=== PATIENT | male | born 1965 | race Caucasian/White ===

== ENCOUNTER 2020-06-07 04:37 | Inpatient (IN) | payer BC ==
[~2020-06-07] VITALS: Ht 167.6 cm; Wt 90.3 kg
[2020-06-07] VITALS (7 sets, daily range): BP systolic 110–210; BP diastolic 74–140
[~2020-06-07 04:37] MED LIST: COREG25 MG PO; HYDROCHLOROTHIA25 M2 PO; K-DUR 20 MEQ T20 MEQ PO; LASIX 20 MG TAB20 MG PO; LIPITOR40 MG PO; OMEPRAZOLE40 MG PO; OSCIMIN SR0.375 MG PO; PRINIVIL10 MG PO
[2020-06-07 05:13] LABS: BE -17.1 mmol/L (-2 to +3); PO2 89.2 mmHg (75.0-100.0)
[2020-06-07 05:15] LABS: PCO2 50.3 mmHg (35.0-45.0); pH 7.052 (7.340-7.450)
[2020-06-07 05:34] LABS: ABSOLUTE BASOPHILS 0.1 thou/uL (0.0-0.2); ABSOLUTE EOSINOPHILS 0.2 thou/uL (0.0-0.7); ABSOLUTE LYMPHOCYTES 6.7 thou/uL (0.8-5.3); ABSOLUTE MONOCYTES 0.6 thou/uL (0.0-1.2); ABSOLUTE NEUTROPHILS 5.3 thou/uL (1.6-8.1); BASOPHILS 0.5 %; EOSINOPHILS 1.9 %; HEMATOCRIT 54.9 % (42.0-52.0); HEMOGLOBIN 17.7 gm/dL (14.0-18.0); MCH 33.2 pg (26.0-34.0); MCHC 32.2 g/dL (28.0-37.0); MCV 102.9 fL (80.0-100.0); MONOCYTES 4.6 %; NUCLEATED RBCS 0 /100WBC; PLATELET COUNT* 223 thou/uL (150-400); RBC 5.34 mil/uL (4.50-6.00); RDW-CV 14.2 % (10.5-14.5); WBC 12.8 thou/uL (4.0-11.0)
[2020-06-07 05:35] LABS: CALCIUM 9.4 mg/dL (8.5-10.1); CREATININE 1.7 mg/dL (0.6-1.3); POTASSIUM 4.2 mmol/L (3.5-5.1)
[2020-06-07 05:38] LABS: PROTIME 10.9 Seconds (9.20-11.50)
[2020-06-07 05:45] LABS: ALBUMIN 3.3 g/dL (3.4-5.0); MAGNESIUM 2.3 mg/dL (1.8-2.4); TOTAL BILIRUBIN 0.6 mg/dL (<0.1-1.0); TOTAL PROTEIN 7.1 g/dL (6.4-8.2)
--- NOTE | 2020-06-07 05:55 | NUR ---
A FEW MOMENTS PRIOR TO TRANSPORT TO [facility], PT'S WORK OF BREATHING DECREASED, PT REPORTED PAIN HAD RESOLVED, AND PT BECAME LESS DIAPHORETIC, AND MADE A CALL TO HIS FAMILY. BIPAP REMOVED, AND PLACED ON O2 @ 4LPM [place] PRIOR TO TRANSPORT. PT APPEARED TO BE MUCH MORE RELAXED AND IN NO ACUTE DISTRESS AT TIME OF TRANSFER. VITALS NOTED, SEE STEMI FLOWSHEET. CARE RELINQUISHED TO [facility] STAFF.
[2020-06-07 06:24] LABS: BE -9.7 mmol/L (-2 to +3); PCO2 33.6 mmHg (35.0-45.0)
[2020-06-07 06:27] LABS: PO2 277.6 mmHg (75.0-100.0); pH 7.287 (7.340-7.450)
[2020-06-07] MEDS ORDERED: PROAIR HFA8.5 GM INH (08:05)
--- NOTE | 2020-06-07 11:17 | CARD ---
[address] [address] CARDIAC CATH REPORT Name: DARSHAN MURILLO Room: 001 ADM IN M.R.#: [id number] Admission: 06/07/20 Attend Phys: Humberto Carr MD Discharge: Date of : 61 Report #: [id number] THIS REPORT FOR: cc: FAM - No family physician/PCP FAM - No family physician/PCP ~ Ruiz Villalobos MD [facility] APPROVED REPORT Study performed: 06/07/2020 05:19:26 Patient Details Patient Status: ED Room #: The patient is a 54 year-old male Event Personnel Ruiz Villalobos And Drying Supervisor Cooking Casing, Corrina Dowell RN RN, Ke Us RETAIL PHARMACIST Scrub, Elvia Jaramillo RTR Monitor Procedures Performed Art Access - R radial artery Left Heart Cath w/or w/o Coronaries ISAI Place w/wo Plasty Single LAD Hemostasis with Hemoband Indication Abnormal ECG, Dyspnea, Chest pain Risk Factors Arterial Hypertension, Hypercholesterolemia, Tobacco History () Admission/Lab Medications/Medications given during procedure Glycoprotein IllbIlla Inhibitors, Heparin Unfract., 0.9% Sodium Chloride IV 75 ml per hr, Lidocaine Subcut 10 ml, Nitroglycerin IA 200 mcg, Verapamil IA 2.5 mg, Heparin IV 2500 units, Bicarb IV 50 mEq, Lasix (Furosemide) IV 40 ml, Heparin IV 2000 units, Aggrastat IV 9 ml, Effient PO 60 mg Procedure Narrative The patient was brought emergently to the Cardiac Catheterization Laboratory and was prepped and draped in a sterile manner. The right wrist was infiltrated with 2% Lidocaine subcutaneous anesthesia. A Slender Glidesheath sheath was inserted into the right radial artery. Coronary angiography was performed [place] [address] CARDIAC CATH REPORT Name: CHIDIDARSHANPETRA XIONG Room: [address] IN [facility]#: [id number] Admission: 06/07/20 Attend Phys: Humberto Carr MD Discharge: Date of : 61 Report #: [id number] catheters. The right coronary system was accessed and visualized with a Diagnostic 6 Fr JR 4 catheter. The left coronary system was accessed and visualized with a Diagnostic 6 Fr JL 4 catheter. The left ventricle was accessed and visualized with a Diagnostic 6 Fr Pigtail catheter. Left ventricular/Aortic Valve gradient assessed via catheter pullback. Left ventriculogram was performed in BENAVIDES projection. Closure device was deployed with a 6 Fr Reg Vasc Band. The patient tolerated the procedure well and there were no complications associated with the procedure. There was no hematoma. Intraoperative Conscious Sedation No sedation was given. Case start was 06:07 and case end was 06:47. Fluoro Time: 8.4 minutes Dose: DAP 224069 cGycm2 1764 mGy Contrast Type and Amount: Visipaque 365 ml Coronary Angiography The patient's coronary anatomy is co- dominant. Diagnostic Cath Left Main 0% stenosis LAD 80% mid stenosis Circumflex 30% mid stenosis OM1 40% proximal stenosis Right Coronary 40% proximal and 40% mid stenosis Left Ventriculography The left ventricular ejection fraction is estimated to be 30-35%. There is no mitral insufficiency. global left ventricle hypokinesis noted Hemodynamics The aortic pressure is 117/75 mmHg with a mean of 93 mmHg. The left ventricular pressure is 117/11 mmHg with a mean of mmHg. The left ventricular end diastolic pressure is 25 mmHg. There was no gradient across the aortic valve upon pullback. Pullback from the left ventricle to the aorta revealed no gradient across the aortic valve. PCI Technique Lesion Anticoagulation was achieved with Heparin. bolus of IV aggrastat given Percutaneous coronary [place] [address] CARDIAC CATH REPORT Name: DARSHAN MURILLO Room: [address] IN [facility]#: [id number] Admission: 06/07/20 Attend Phys: Humberto Carr MD Discharge: Date of : 61 Report #: [id number] left anterior descending artery segment. The lesion stenosis prior to intervention was 80% with ROSENDO 3 flow. A 6F XB LAD 3.5 Guide Catheter was used to engage the left ostium. A IG: BMW 190cm Interventional Guidewire was used to cross the lesion. BALLOON DILATION A Balloon catheter Trek RX 2.5 X 12 was inserted and inflated up to 14.00atm for 19seconds. Repeat angiography revealed the following post-dilatation results: 40% stenosis. Additional Inflation: 14.00atm for 10seconds. STENT DEPLOYMENT A drug-eluting stent [place] RX Stent [id number] was inserted and inflated up to 8.00atm for 11seconds. Repeat angiography revealed the following post-stent deployment results: 0% stenosis. Additional Inflation: 10.00atm for 7seconds. Additional Inflation: 10.00atm for 10seconds. Final angiography reveals 0 % stenosis with ROSENDO 3 flow. Conclusion 1. 80% stenosis noted in the mid LAD 2. LVEF 30-35% 3. successful placement of a drug eluting stent in the mid LAD Recommendations Smoking Cessation Medications Administered Prasugrel <ELECTRONICALLY SIGNED> By: Ruiz Villalobos MD, [facility] 06/07/20 1117 111 [id number] Villalobos MD, [facility] /INF
--- NOTE | 2020-06-07 12:54 | EKG ---
[place] [address] ELECTROCARDIOGRAM REPORT Name: DARSHAN MURILLO Room: [address] ADM IN .R.#: [id number] Admission: 06/07/20 Attend Phys: Humberto Carr, Discharge: Date of : 61 Date of Service: 06/07/20 0511 Report #: [id number] THIS REPORT FOR: //name// [facility] ED Test Date: 2020-06-07 Test Time: 05:11:13 Pat Name: DARSHAN MURILLO Department: Room: [facility] Gender: M Pilot Boat Deckhand: : 1965 Requested By: Ruiz Villalobos Order Number: [id number] Octavia MD: Saul Hernandez Measurements Intervals [place] Rate: 111 P: 39 [place]: 138 QRS: 11 QRSD: 140 T: 185 QT: 389 QTc: 529 Interpretive Statements Sinus tachycardia Left bundle branch block Compared to ECG 09/08/2015 16:47:16 Left bundle-branch block now present Sinus rhythm no longer present Electronically Signed On 06-07-2020 12:54:37 STAVE CUTTING SUPERVISOR by Saul Hernandez [email or web address] <ELECTRONICALLY SIGNED> By: Saul Hernandez MD, FACC 06/07/20 1254 0511 0511 Saul Hernandez MD, [facility] /EPI
--- NOTE | 2020-06-07 12:54 | EKG ---
[place] [address] ELECTROCARDIOGRAM REPORT Name: DARSHAN MURILLO Room: [address] ADM IN .R.#: [id number] Admission: 06/07/20 Attend Phys: Humberto Carr, Discharge: Date of : 61 Date of Service: 06/07/20 0446 Report #: [id number] THIS REPORT FOR: //name// [facility] ED Test Date: 2020-06-07 Test Time: 04:46:48 Pat Name: DARSHAN MURILLO Department: Room: [facility] Gender: M Parasitologist: LIS : 1965 Requested By: Maren Harmon Order Number: [id number] Octavia MD: Saul Hernandez Measurements Intervals [place] Rate: 133 P: 268 [place]: 105 QRS: 29 QRSD: 136 T: 218 QT: 322 QTc: 479 Interpretive Statements Sinus or ectopic atrial tachycardia Left bundle branch block Compared to ECG 09/08/2015 16:47:16 Left bundle-branch block now present Sinus rhythm no longer present Electronically Signed On 06-07-2020 12:54:31 FAT PURIFICATION WORKER by Saul Hernandez [email or web address] <ELECTRONICALLY SIGNED> By: Saul Hernandez MD, FACC 06/07/20 1254 0446 0446 Saul Hernandez MD, FACC /EPI
--- NOTE | 2020-06-07 12:55 | EKG ---
[place] [address] ELECTROCARDIOGRAM REPORT Name: DARSHAN MURILLO Room: [address] ADM IN M.R.#: [id number] Admission: 06/07/20 Attend Phys: Humberto Carr, Discharge: Date of : 61 Date of Service: 06/07/20 0805 Report #: [id number] THIS REPORT FOR: //name// [facility] Test Date: 2020-06-07 Test Time: 08:05:00 Pat Name: DARSHAN MURILLO Department: Room: [facility] Gender: M Coffin Maker: AMEE : 1965 Requested By: Maren Harmon Order Number: [id number] MD: Saul Hernandez Measurements Intervals [place] Rate: 99 P: 47 [place]: 154 QRS: 15 QRSD: 93 T: 104 QT: 364 QTc: 468 Interpretive Statements Sinus rhythm Probable left atrial enlargement T wave inversion anterior leads consider ischemia Compared to ECG 09/08/2015 16:47:16 Myocardial infarct finding now present Electronically Signed On 06-07-2020 12:55:11 CLAIM SPECIALIST by Saul Hernandez [email or web address] <ELECTRONICALLY SIGNED> By: Saul Hernandez MD, FACC 06/07/20 1255 0805 Saul Hernandez MD, [facility] /EPI
[2020-06-07 14:03] LABS: BE 0.9 mmol/L (-2 to +3); PO2 VENOUS 49.8 mmHg (35.0-45.0)
[2020-06-07 15:44] LABS: ALBUMIN 3.4 g/dL (3.4-5.0); DIRECT BILIRUBIN 0.2 mg/dL (<0.1-0.3); TOTAL BILIRUBIN 0.6 mg/dL (<0.1-1.0); TOTAL PROTEIN 6.9 g/dL (6.4-8.2)
--- NOTE | 2020-06-07 16:35 | CON ---
[address] [address] CONSULTATION Name: DARSHAN MURILLO Room: [address] IN M.R.#: [id number] Admission: 06/07/20 Attend Phys: Humberto Carr MD Discharge: Date of : 61 Report #: [id number] THIS REPORT FOR: cc: FAM - No family physician/PCP FAM - No family physician/PCP ~ Ruiz Villalobos MD [facility] DATE OF SERVICE: 06/07/2020 HISTORY OF PRESENT ILLNESS: The patient is a 54-year-old white male who I was asked to see in the Emergency Room today after he complained of shortness of breath. The history is obtained from the patient. There are no old records here at [facility]. The patient is not very active at this time. Unfortunately, he smokes a pack of cigarettes a day and has a chronic cough. He uses inhalers. He apparently did have a heart catheterization at [facility] back in 2007 that showed no significant coronary artery disease. He denies a history of chest pain, palpitations, syncope. Recently, he has been more short of breath. He does have chronic cough. He awakened at 4:00 this morning and was acutely short of breath. He called the ambulance. He was given 4 nitroglycerins. ECG showed evidence of ST segment elevation. Code STEMI was activated. I was asked to see him on an urgent basis. He was given nebulizer treatment and put on BiPAP. His shortness of breath is now improved. PAST MEDICAL HISTORY: Otherwise, he has had: 1. Previous cholecystectomy. 2. Hypertension. 3. Hyperlipidemia. 4. COPD. MEDICATIONS: Include: 1. Lisinopril. 2. Carvedilol. 3. Lipitor. 4. Omeprazole. 5. Hydrochlorothiazide. ALLERGIES: He has an allergy to SULFA DRUGS. FAMILY HISTORY: Positive for heart disease. SOCIAL HISTORY: He has a male partner. He lives in [place]. 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 He smokes a pack of cigarettes a day. Has 3-4 drinks of alcohol a day. REVIEW OF SYSTEMS: No history of stroke. He does have sleep apnea, [place] [address] CONSULTATION Name: SARAHDIEGODARSHANPETRA XIONG Room: [address]#: [id number] Admission: 06/07/20 Attend Phys: Humberto Carr MD Discharge: Date of : 61 Report #: [id number] He has a chronic cough. No oxygen at home. No liver disease. No bleeding. No kidney disease. No cancer. No psychiatric illness. PHYSICAL EXAMINATION: GENERAL: Reveals a middle-aged male, who appears in moderate respiratory distress. VITAL SIGNS: His blood pressure is 120/70. His pulse is 90. HEENT: He is anicteric. Conjunctivae are pink. Mucous membranes moist. NECK: Veins nondistended. No carotid bruits. CHEST: Revealed expiratory sounds. No significant wheezes. ABDOMEN: Soft. EXTREMITIES: Had no edema. Dorsalis pedis pulse 2+ bilaterally. SKIN: Cool and dry. NEUROLOGIC: Nonfocal. RADIOLOGICAL DATA: His ECG on admission showed sinus tachycardia. There appeared to be a rate dependent bundle-branch block. The bundle-branch block is new from a previous ECG in 2016. His workup, he had a portable chest x-ray that showed mild cardiomegaly, mild pulmonary edema. LABORATORY WORK: Sodium 140, potassium 4.2, creatinine 1.7. His glucose is 304. His troponin is 0.04. White blood cell count 12.8, hemoglobin 17.7. COVID antigen study is pending. ABG; pH 7.0, pCO2 of 50, pO2 of 89. IMPRESSION AND RECOMMENDATIONS: 1. Rate dependent bundle-branch block. Recommend urgent cardiac catheterization. 2. Chronic obstructive pulmonary disease. The patient is on BiPAP. 3. Pulmonary edema. Recommend Lasix. 4. Tobacco abuse. 5. Hypertension. The patient is on an LIZABETH inhibitor, beta [place]orge [place] [address] CONSULTATION Name: DARSHAN MURILLO Room: [address] IN ..#: [id number] Admission: 06/07/20 Attend Phys: Humberto Carr MD Discharge: Date of : 61 Report #: [id number] 6. Hyperlipidemia. The patient is on a statin drug. 7. Excessive alcohol intake. <ELECTRONICALLY SIGNED> By: Ruiz Villalobos MD, FACC 06/07/20 1635 0554 [id number] Villalobos MD, FACC /nt
--- NOTE | 2020-06-07 16:35 | CON ---
[address] [address] CONSULTATION Name: DARSHAN MURILLO Room: [address] IN M.R.#: [id number] Admission: 06/07/20 Attend Phys: Humberto Carr MD Discharge: Date of : 61 Report #: [id number] THIS REPORT FOR: cc: FAM - No family physician/PCP FAM - No family physician/PCP ~ Ruiz Villalobos MD [facility] DATE OF SERVICE: 06/07/2020 CARDIOLOGY CONSULTATION HISTORY OF PRESENT ILLNESS: The patient is a 54-year-old white male who I was asked to see in the Emergency Room today after he complained of being short of breath. The patient denies a previous history of heart disease. He apparently has been tested for COVID recently and was negative. He has noticed shortness of breath and cough, but he has had no fever. He awakened at 4:00 a.m. today with acute shortness of breath. He did note some chest tightness. Denied palpitations, syncope, bleeding. He called the ambulance and was brought here to [place] on an emergent basis. His ECG was noted to have a new left bundle branch block. I was asked to see him for further evaluation and treatment. PAST MEDICAL HISTORY: He has had previous surgery on his neck. He has a history of hypertension, hyperlipidemia. No diabetes. CURRENT MEDICATIONS: Include lisinopril, carvedilol, Lipitor. ALLERGIES: HE HAS AN ALLERGY TO SULFA DRUGS. FAMILY HISTORY: Positive for heart disease. SOCIAL HISTORY: He has a male partner. He lives in [place]. 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 Smokes a pack of cigarettes a day, 3-4 drinks of alcohol a day. REVIEW OF SYSTEMS: No history of stroke. He does have sleep apnea. He has a chronic cough. No history of liver disease, kidney disease. He has been tested for HIV in the past, was negative. No cancer. No psychiatric illness. PHYSICAL EXAMINATION: GENERAL: Revealed a middle-aged male, appeared in moderate respiratory distress with BiPAP in place. VITAL SIGNS: Blood pressure 120/70, pulse is 80, respirations are mildly labored. HEENT: He was anicteric. Conjunctivae are pink. [place] [address] CONSULTATION Name: SARAHDIEGODARSHANPETRA XIONG Room: [address]#: [id number] Admission: 06/07/20 Attend Phys: Humberto Carr MD Discharge: Date of : 61 Report #: [id number] CHEST: Clear to auscultation. CARDIOVASCULAR: Regular rate and rhythm. ABDOMEN: Soft. EXTREMITIES: Had no edema. LABORATORY DATA: His ECG showed sinus tachycardia. There was a left bundle branch block pattern and there were occasional R waves that were normally conducted suggesting this is a rate dependent bundle-branch block. IMPRESSION AND RECOMMENDATIONS: 1. Chest pressure. Risk factor is coronary artery disease. Noted to have a new left bundle branch block. Recommend urgent cardiac catheterization. 2. Chronic obstructive pulmonary disease with chronic bronchitis. 3. Hypertension. The patient is on a beta jorge and LIZABETH inhibitor. 4. Hyperlipidemia. The patient is on a statin drug. 5. Chronic kidney disease. 6. Tobacco abuse. 7. History of excessive alcohol intake. <ELECTRONICALLY SIGNED> By: Ruiz Villalobos MD, FACC 06/07/20 1635 1006 [id number] Villalobos MD, FACC /nt
[2020-06-08] VITALS (11 sets, daily range): BP systolic 124–157; BP diastolic 79–107
[2020-06-08 04:06] LABS: GLYCOHEMOGLOBIN (HGB A1C) 5.6 % (4.8-5.6)
[2020-06-08 04:27] LABS: ANION GAP 9 mmol/L (7-16); BUN 23 mg/dL (7-18); CHLORIDE 98 mmol/L (98-107); CHOLESTEROL 247 mg/dL (<200); CO2 29 mmol/L (21-32); CREATININE 1.4 mg/dL (0.6-1.3); GLUCOSE 128 mg/dL (70-99); HDL CHOLESTEROL 39 mg/dL (>40); LDL CHOLESTEROL 196 mg/dL (<100); POTASSIUM 3.9 mmol/L (3.5-5.1); SODIUM 136 mmol/L (136-145); TC:HDL 6.3 Ratio (Not establshd); TRIGLYCERIDE 64 mg/dL (<150); VLDL 13 mg/dL (<40)
[2020-06-08 04:30] LABS: SERUM ASSESSMENT Clear
[2020-06-08] MEDS ORDERED: LIPITOR 40 MG T40 M1 PO (09:19)
[2020-06-08] MEDS ORDERED: CARVEDILOL12.5 MG PO (09:19)
[2020-06-08] MEDS ORDERED: NICOTINE TRANSD14 M1 TRANSDERM (09:19)
[2020-06-08] MEDS ORDERED: EFFIENT10 MG PO (09:19)
[2020-06-08] MEDS ORDERED: NITROGLYCERIN0.4 MG SUBLING (09:19)
[2020-06-08] MEDS ORDERED: ASPIR 8181 MG PO (09:19)
--- NOTE | 2020-06-08 13:26 | NUR ---
Pt is A&O. Pt resides at home with his sig other. Independent. Pt has a home cpap. No hx of HH or SNF. Pt having a heart cath today. Goal is home at dc, anticipate dc tomorrow.
--- NOTE | 2020-06-08 14:28 | EKG ---
[place] [address] ELECTROCARDIOGRAM REPORT Name: DARSHAN MURILLO Room: [address] ADM IN M.R.#: [id number] Admission: 06/07/20 Attend Phys: Humberto Carr, Discharge: Date of : 61 Date of Service: 06/07/20 1710 Report #: [id number] THIS REPORT FOR: //name// [facility] Test Date: 2020-06-07 Test Time: 17:10:26 Pat Name: DARSHAN MURILLO Department: Room: [address] Gender: M Heel Brusher: TON : 1965 Requested By: Madalyn Rosas Order Number: [id number] Reading MD: Cortes Hudson Measurements Intervals [place] Rate: 114 P: 0 NM: 97 QRS: 4 QRSD: 96 T: 165 QT: 424 QTc: 585 Interpretive Statements Sinus tachycardia Abnrm T, consider ischemia, anterolateral lds Prolonged QT interval Compared to ECG 06/07/2020 08:05:00 Prolonged QT interval now present Sinus rate has increased and PVCs are noted Possible ischemia still present Electronically Signed On 06-08-2020 14:27:49 STYLIST ASSISTANT by Cortes Hudson [email or web address] <ELECTRONICALLY SIGNED> By: Cortes Hudson MD, [facility] 06/08/20 1427 09 09 Cortes Hudson MD, [facility] /EPI
--- NOTE | 2020-06-08 14:31 | EKG ---
[place] [address] ELECTROCARDIOGRAM REPORT Name: DARSHAN MURILLO Room: [address] ADM IN M.R.#: [id number] Admission: 06/07/20 Attend Phys: Humberto Carr, Discharge: Date of : 61 Date of Service: 06/08/20 0315 Report #: [id number] THIS REPORT FOR: //name// [facility] Test Date: 2020-06-08 Test Time: 03:15:38 Pat Name: DARSHAN MURILLO Department: Room: [facility] Gender: M Bear Keeper: TR : 1965 Requested By: Ruiz Villalobos Order Number: [id number] Reading MD: Cortes Hudson Measurements Intervals [place] Rate: 106 P: 45 [place]: 148 QRS: 11 QRSD: 89 T: 136 QT: 384 QTc: 510 Interpretive Statements Sinus tachycardia Abnrm T, consider ischemia, anterolateral lds Prolonged QT interval Compared to ECG 06/07/2020 17:10:26 PVCs have remitted and anterolateral ischemic ST-T changes are more prominent Electronically Signed On 06-08-2020 14:30:46 SHOE LAY OUT PLANNER by Cortes Hudson [email or web address] <ELECTRONICALLY SIGNED> By: Cortes Hudson MD, FAC 06/08/20 1430 4 Cortes Hudson MD, FAC /EPI
--- NOTE | 2020-06-08 17:27 | CARD ---
[address] [address] CARDIAC CATH REPORT Name: DARSHAN MURILLO Room: 209-P ADM IN ..#: [id number] Admission: 06/07/20 Attend Phys: Humberto Carr MD Discharge: Date of : 61 Report #: [id number] THIS REPORT FOR: cc: FAM - No family physician/PCP FAM - No family physician/PCP ~ Cortes Hudson MD [facility] APPROVED REPORT Study performed: 06/08/2020 14:21:08 Patient Details Patient Status: In-Patient Room #: 209 The patient is a 54 year-old male Event Personnel Cortes Hudson City Constable, Daylin Downing RN Aids Nurse, Lani Zhang RTR Monitor, Elvia Jaramillo RTR Scrub Procedures Performed Art Access - R femoral artery, Left Heart Cath w/or w/o Coronaries LHC, ISAI Place w/wo Plasty Single LAD , Hemostasis w/ Angioseal Indication Non-STEMI , Dyspnea Risk Factors Dysplipidemia , Diabetes Tobacco History () Admission/Lab Medications/Medications given during procedure Angiomax IV 13.5 ml, Angiomax Drip IV 31.74 ml per hr, Angiomax IV 4 ml, Effient PO 30 mg, Aspirin PO 162 mg Procedure Narrative The patient was brought electively to the Cardiac Catheterization Laboratory and was prepped and draped in a sterile manner. The right femoral was infiltrated with 2% Lidocaine subcutaneous anesthesia. A 6F [place] sheath was inserted into the right femoral artery. Coronary angiography was performed using coronary diagnostic catheters. The right coronary system was accessed and visualized with a 6F JR4 catheter. The left coronary system was accessed and visualized with a 6F JL4 catheter. The left ventricle was accessed and visualized with a 6F Pigtail catheter. Left ventricular/Aortic Valve gradient assessed via catheter [place] [address] CARDIAC CATH REPORT Name: DARSHAN MURILLO Room: [address] IN ..#: [id number] Admission: 06/07/20 Attend Phys: Humberto Carr MD Discharge: Date of : 61 Report #: [id number] femoral angiogram was performed . Closure device was deployed with a 6 Fr Angioseal STS. The patient tolerated the procedure well and there were no complications associated with the procedure. There was no hematoma. Intraoperative Conscious Sedation Sedation start time: 14:57 Case end Time: 15:57 Fentanyl 100 mcg Versed 4 mg Fluoro Time: 16.6 minutes Dose: DAP 256423 cGycm2 1999 mGy Contrast Type and Amount: Visipaque 110 ml Coronary Angiography The patient's coronary anatomy is right dominant. Diagnostic Cath Left Main 0% narrowing LAD 80% mid vessel stenosis just proximal to a previously deployed stent with 40% distal LAD narrowing Circumflex 30% proximal narrowing Right Coronary Aneurysmal dilatation of the midportion with 40% narrowing surrounding the acute margin Left Ventriculography Left Ventriculography was not performed. Hemodynamics The aortic pressure is 123/76 mmHg with a mean of 85 mmHg. The left ventricular pressure is 123/1 mmHg with a mean of mmHg. The left ventricular end diastolic pressure is 15 mmHg. There was no gradient across the aortic valve upon pullback. PCI Technique Lesion Anticoagulation was achieved with Angiomax. Patient was preloaded with Angiomax IV 13.5 ml. Percutaneous coronary intervention was performed on the mid left anterior descending artery segment. The lesion stenosis prior to intervention was 80% with ROSENDO 3 flow. A 6FR LAUNCHER EBU 4.0 Guide Catheter was used to engage the lm ostium. A BMW 190cm Interventional Guidewire was used to cross the lesion. BALLOON DILATION A Balloon catheter Euphora SC 2.25x12 [place] [address] CARDIAC CATH REPORT Name: DARSHAN MURILLO Room: [address]#: [id number] Admission: 06/07/20 Attend Phys: Humberto Carr MD Discharge: Date of : 61 Report #: [id number] 12.00atm for 11seconds. Additional Inflation: 14.00atm for 8seconds. STENT DEPLOYMENT A drug-eluting stent Anastacio RX Stent 2.5X18mm was inserted and inflated up to 12.00atm for 13seconds. Additional Inflation: 15.00atm for 11seconds. A 2nd drug-eluting stent Anastacio RX 2.25 x 8mm was inserted and inflated up to 15 silverio for 12 seconds; 18 silverio for 13 seconds; 18 silverio for 9 seconds. POST STENT DEPLOYMENT BALLOON DILATION A Balloon catheter NC Trek RX 2.5 X 12 was inserted and inflated up to 14.00atm for 8seconds. Additional Inflation: 16.00atm for 9seconds. Additional Inflation: 16.00atm for 9seconds. The same NC Trek RX 2.5 x 12 balloon catheter was inserted again, after 2nd stent deployment, and inflated up to 17 silverio for 9 second; 18 silverio for 8 seconds; 19 silverio for 8 seconds. Final angiography reveals 10 % stenosis with ROSENDO 3 flow. Conclusion 1. 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 Normal left-sided hemodynamic study 3. Successful PCI with deployment of sequential drug-eluting stents at the site of 80% mid LAD stenosis with 10% residual narrowing and ROSENDO-3 flow to the distal vessel Recommendations Smoking Cessation Cardiac Risk Reduction Program Aggressive Medical Therapy [place] [address] CARDIAC CATH REPORT Name: DARSHAN MURILLO Room: [address] IN ..#: [id number] Admission: 06/07/20 Attend Phys: Humberto Carr MD Discharge: Date of : 61 Report #: [id number] Aspirin (any) Prasugrel Diagnostic Cath Approved by: Cortes Hudson MD Date/Time: 06/08/2020 17:26:25 <ELECTRONICALLY SIGNED> By: Cortes Hudson MD, FACC 06/08/20 1727 26 172Cortes Hudson MD, FAC /INF
--- NOTE | 2020-06-08 18:45 | NUR ---
RECEIVED REPORT. ASSUMED CARE OF PT AROUND 0730. AM ASSESSMENT AND VITALS COMPLETED CHARTED. MEDS PER EMAR. PT WENT TO [facility] THIS AFTERNOON AND GOT 2 STENTS TO THE LAD. POST CATH VITALS CHARTED. PT CAN GET UP AROUND 2100. RIGHT GROIN CDI, NO HEMATOMA. PT HOPEFUL TO GO HOME TOMORROW. FISH BIN TENDER IN PLACE. PT RESTING IN BED. CALL LIGHT WITHIN REACH. HOURLY ROUNDING PERFORMED. LOW FALL PRECAUTIONS IN PLACE.
[2020-06-09] VITALS: BP 96/63
[2020-06-09 04:00] VITALS: BP 129/88
[2020-06-09 04:07] LABS: HEMATOCRIT 46.3 % (42.0-52.0); MCH 33.9 pg (26.0-34.0); MCHC 33.6 g/dL (28.0-37.0); MCV 100.9 fL (80.0-100.0); MPV 6.8 fl. (7.2-11.1); RBC 4.59 mil/uL (4.50-6.00); RDW-CV 13.9 % (10.5-14.5); WBC 10.8 thou/uL (4.0-11.0)
[2020-06-09 04:21] LABS: ALBUMIN 3.1 g/dL (3.4-5.0); CALCIUM 8.6 mg/dL (8.5-10.1); CREATININE 1.5 mg/dL (0.6-1.3); POTASSIUM 4.3 mmol/L (3.5-5.1); TOTAL BILIRUBIN 0.9 mg/dL (<0.1-1.0); TOTAL PROTEIN 6.1 g/dL (6.4-8.2); TROPONIN-I LEVEL 0.57 ng/mL (<0.06)
[2020-06-09 05:23] LABS: HEMOGLOBIN 15.6 gm/dL (14.0-18.0)
[2020-06-09 07:30] VITALS: BP 125/80
[2020-06-09 10:55] VITALS: BP 157/107
[2020-06-09 11:10] VITALS: BP 157/107
[2020-06-09 12:03] VITALS: BP 115/78
--- NOTE | 2020-06-09 13:38 | EKG ---
[place] [address] ELECTROCARDIOGRAM REPORT Name: DARSHAN MURILLO Room: [address] IN M.R.#: [id number] Admission: 06/07/20 Attend Phys: Humberto Carr, Discharge: 06/09/20 Date of : 61 Date of Service: 06/08/20 1647 Report #: [id number] THIS REPORT FOR: //name// [facility] Test Date: 2020-06-08 Test Time: 16:47:07 Pat Name: DARSHAN MURILLO Department: Room: [address] Gender: M Nurse Healthcare Manager: AMEE : 1965 Requested By: Cortes Hudson Order Number: [id number] Octavia MD: Saul Hernandez Measurements Intervals [place] Rate: 101 P: 32 MT: 142 QRS: 0 QRSD: 97 T: 82 QT: 367 QTc: 476 Interpretive Statements Sinus rhythm with ectopic atrial premature beats in a pattern of bigeminy with rate dependent left bundle branch block Compared to ECG 06/08/2020 03:15:38 Premature atrial contractions now present in a pattern of bigeminy now present Electronically Signed On 06-09-2020 13:38:12 ELECTRONICS TECHNOLOGY INSTRUCTOR by Saul Hernandez [email or web address] <ELECTRONICALLY SIGNED> By: Saul Hernandez MD, FAC 06/09/20 1338 1647 1647 Saul Hernandez MD, FAC /EPI
--- NOTE | 2020-06-09 13:39 | EKG ---
[place] [address] ELECTROCARDIOGRAM REPORT Name: DARSHAN MURILLO Room: [address] IN M.R.#: [id number] Admission: 06/07/20 Attend Phys: Humberto Carr, Discharge: 06/09/20 Date of : 61 Date of Service: 06/09/20 0348 Report #: [id number] THIS REPORT FOR: //name// [facility] Test Date: 2020-06-09 Test Time: 03:48:11 Pat Name: DARSHAN MURILLO Department: Room: [address] Gender: M Throw Out Clerk: RYAN : 1965 Requested By: Cortes Hudson Order Number: [id number] Octavia MD: Saul Hernandez Measurements Intervals [place] Rate: 107 P: 41 MA: 138 QRS: 8 QRSD: 86 T: 130 QT: 338 QTc: 451 Interpretive Statements Sinus tachycardia Nonspecific T abnrm, anterolateral leads Compared to ECG 06/08/2020 16:47:07 Myocardial infarct finding no longer present Electronically Signed On 06-09-2020 13:39:37 WING SCORER by Saul Hernandez [email or web address] <ELECTRONICALLY SIGNED> By: Saul Hernandez MD, FAC 06/09/20 1339 0348 0348 Saul Hernandez MD, FAC /EPI
--- NOTE | 2020-06-09 16:25 | 2DMMODE ---
[place] [address] 2 D/M-MODE ECHOCARDIOGRAM Name: DARSHAN MURILLO Room: [address] IN M.R.#: [id number] Admission: 06/07/20 Attend Phys: Humberto Carr, Discharge: 06/09/20 Date of : 61 Date of Service: 06/09/20 1625 Report #: [id number] THIS REPORT FOR: cc: FAM - No family physician/PCP FAM - No family physician/PCP Saul Hernandez MD [facility] ~ APPROVED REPORT Study performed: 06/07/2020 08:38:40 EXAM: Comprehensive 2D, Doppler, and color-flow Echocardiogram Patient Location: In-Patient Status: routine BSA: 2.00 HR: 106 bpm BP: 157/107 mmHg Rhythm: NSR Other Information Study Quality: Good Indications Acute VA 2D Dimensions IVSd: 14.36 (7-11mm) LVOT Diam: 20.35 (18-24mm) LVDd: 45.17 mm PWd: 12.47 (7-11mm) Ascending Ao: 35.88 (22-36mm) LVDs: 32.67 (25-40mm) Aortic Root: 36.31 mm Volumes Left Atrial Volume (Systole) LA ESV Index: 18.30 mL/m2 Aortic Valve AoV Peak Chidi.: 1.16 m/s AO Peak Gr.: 5.34 mmHg LVOT Max P.15 mmHg AO Mean Gr.: 3.08 mmHg LVOT Mean P.53 mmHg LVOT Max V: 0.89 m/s AO V2 VTI: 18.04 cm LVOT Mean V: 0.56 m/s ISMA (VTI): 2.67 cm2 LVOT V1 VTI: 14.80 [place] [address] 2 D/M-MODE ECHOCARDIOGRAM Name: DARSHAN MURILLO Room: [address] IN .R.#: [id number] Admission: 06/07/20 Attend Phys: Humberto Carr, Discharge: 06/09/20 Date of : 61 Date of Service: 06/09/20 1625 Report #: [id number] Mitral Valve E/A Ratio: 0.51 MV Decel. Time: 53.92 ms MV E Max Chidi.: 0.48 m/s MV PHT: 15.64 ms MVA (PHT): 14.07 cm2 TDI E/Lateral E': 5.33 E/Medial E': 8.00 Medial E' Chidi.: 0.06 m/s Lateral E' Chidi.: 0.09 m/s Pulmonary Valve PV Peak Chidi.: 0.84 m/s PV Peak Gr.: 2.84 mmHg Left Ventricle The left ventricle is normal size. Hypokinesis noted involving the anterior septal apical wall. Mild to moderate concentric left ventricular hypertrophy. Left ventricular systolic function is moderately decreased. LVEF is 40-45%. Grade I - abnormal relaxation pattern. Right Ventricle The right ventricle is normal size. The right ventricular systolic function is normal. Atria The left atrium size is normal. The right atrium size is normal. Aortic Valve The aortic valve is normal in structure. No aortic regurgitation is present. There is no aortic valvular stenosis. Mitral Valve The mitral valve is normal in structure. Mild mitral regurgitation. No evidence of mitral valve stenosis. Tricuspid Valve The tricuspid valve is normal in structure. There is no tricuspid valve regurgitation noted. Pulmonic Valve The pulmonary valve is normal in structure. There is no [place]mon[place] [address] 2 D/M-MODE ECHOCARDIOGRAM Name: DARSHAN MURILLO Room: [address] IN [facility]#: [id number] Admission: 06/07/20 Attend Phys: Humberto Carr, Discharge: 06/09/20 Date of : 61 Date of Service: 06/09/20 1625 Report #: [id number] Great Vessels The aortic root is normal in size. IVC is normal in size and collapses >50% with inspiration. Pericardium There is no pericardial effusion. <Conclusion> Hypokinesis noted involving the anterior septal apical wall. Mild mitral regurgitation. IVC is normal in size and collapses >50% with inspiration. <ELECTRONICALLY SIGNED> By: Saul Hernandez MD, FACC 06/09/20 1625 1625 1625 Saul Hernandez MD, FACC /INF
== END 2020-06-09 13:16 | disposition home or self-care (01) | DRG 247 ==
LOC: M.ERS 04:37 → M.CL 04:37 → M.2W 06:05 → M.TBA-CV 06:05 → M.ICU 07:37 → M.2W 12:19
PROVIDERS: Emergency Medicine; Internal Medicine; ADMIT Internal Medicine; ATTEND Internal Medicine
PROC: B211YZZ Fluoroscopy of Multiple Coronary Arteries using Other Contrast (ICD-10-PCS; principal; 2020-06-07)
PROC: 027034Z Dilation of Coronary Artery, One Artery with Drug-eluting Intraluminal Device, Percutaneous Approach (ICD-10-PCS; principal; 2020-06-07)
PROC: B215YZZ Fluoroscopy of Left Heart using Other Contrast (ICD-10-PCS; principal; 2020-06-07)
PROC: 4A023N7 Measurement of Cardiac Sampling and Pressure, Left Heart, Percutaneous Approach (ICD-10-PCS; principal; 2020-06-07)
PROC: B211YZZ Fluoroscopy of Multiple Coronary Arteries using Other Contrast (ICD-10-PCS; 2020-06-08)
PROC: 4A023N7 Measurement of Cardiac Sampling and Pressure, Left Heart, Percutaneous Approach (ICD-10-PCS; 2020-06-08)
PROC: 027035Z Dilation of Coronary Artery, One Artery with Two Drug-eluting Intraluminal Devices, Percutaneous Approach (ICD-10-PCS; 2020-06-08)
DX: I21.4 Non-ST elevation (NSTEMI) myocardial infarction (principal); I42.9 Cardiomyopathy, unspecified; E87.2 Acidosis; E78.00 Pure hypercholesterolemia, unspecified; E78.5 Hyperlipidemia, unspecified; J44.9 Chronic obstructive pulmonary disease, unspecified; I45.10 Unspecified right bundle-branch block; N18.9 Chronic kidney disease, unspecified; F17.210 Nicotine dependence, cigarettes, uncomplicated; R73.03 Prediabetes; I12.9 Hypertensive chronic kidney disease with stage 1 through stage 4 chronic kidney disease, or unspecified chronic kidney disease; I25.10 Atherosclerotic heart disease of native coronary artery without angina pectoris; Z20.822 Contact with and (suspected) exposure to COVID-19; Z88.2 Allergy status to sulfonamides; Z90.49 Acquired absence of other specified parts of digestive tract; Z82.49 Family history of ischemic heart disease and other diseases of the circulatory system; Z79.899 Other long term (current) drug therapy

== ENCOUNTER 2020-07-04 17:00 | Inpatient (IN) | payer BC ==
[2020-07-04] VITALS (9 sets, daily range): BP systolic 89–198; BP diastolic 66–121
[~2020-07-04] VITALS: Ht 175.3 cm; Wt 92.5 kg
[~2020-07-04 17:00] MED LIST changes: +ASPIR 8181 MG PO; +CARVEDILOL12.5 MG PO; +EFFIENT10 MG PO; +LIPITOR 40 MG T40 M1 PO; +NICOTINE TRANSD14 M1 TRANSDERM; +NITROGLYCERIN0.4 MG SUBLING; +PROAIR HFA8.5 GM INH
[2020-07-04 17:36] LABS: APTT 21.7 Seconds (25.0-31.3); PROTIME 10.9 Seconds (9.20-11.50)
[2020-07-04 17:39] LABS: ABSOLUTE BASOPHILS 0.1 thou/uL (0.0-0.2); ABSOLUTE EOSINOPHILS 0.4 thou/uL (0.0-0.7); ABSOLUTE LYMPHOCYTES 5.4 thou/uL (0.8-5.3); ABSOLUTE MONOCYTES 0.8 thou/uL (0.0-1.2); ABSOLUTE NEUTROPHILS 5.6 thou/uL (1.6-8.1); BASOPHILS 0.6 %; EOSINOPHILS 3.2 %; HEMATOCRIT 55.4 % (42.0-52.0); HEMOGLOBIN 18.5 gm/dL (14.0-18.0); MCH 32.8 pg (26.0-34.0); MCHC 33.4 g/dL (28.0-37.0); MONOCYTES 6.5 %; MPV 7.2 fl. (7.2-11.1); NUCLEATED RBCS 0 /100WBC; PLATELET COUNT* 195 thou/uL (150-400); POLYS 45.7 %; RBC 5.65 mil/uL (4.50-6.00); RDW-CV 13.9 % (10.5-14.5); WBC 12.3 thou/uL (4.0-11.0)
[2020-07-04 17:57] LABS: CALCIUM 8.6 mg/dL (8.5-10.1); CREATININE 1.5 mg/dL (0.6-1.3); POTASSIUM 4.5 mmol/L (3.5-5.1)
[2020-07-04 18:11] LABS: ALBUMIN 3.5 g/dL (3.4-5.0); CK-MB MASS 1.9 ng/mL (<0.5-3.6); TOTAL BILIRUBIN 0.4 mg/dL (<0.1-1.0); TOTAL PROTEIN 7.7 g/dL (6.4-8.2)
[2020-07-05] VITALS (22 sets, daily range): BP systolic 86–148; BP diastolic 55–93
[2020-07-05 10:22] LABS: ABSOLUTE EOSINOPHILS 0.2 thou/uL (0.0-0.7); ABSOLUTE LYMPHOCYTES 1.9 thou/uL (0.8-5.3); ABSOLUTE MONOCYTES 0.3 thou/uL (0.0-1.2); ABSOLUTE NEUTROPHILS 4.9 thou/uL (1.6-8.1); BASOPHILS 0.4 %; EOSINOPHILS 2.3 %; HEMATOCRIT 45.7 % (42.0-52.0); LYMPHOCYTES 26.1 %; MCH 32.2 pg (26.0-34.0); MCHC 33.8 g/dL (28.0-37.0); MCV 95.2 fL (80.0-100.0); MONOCYTES 4.7 %; MPV 6.5 fl. (7.2-11.1); NUCLEATED RBCS 0 /100WBC; PLATELET COUNT* 154 thou/uL (150-400); POLYS 66.5 %; RDW-CV 13.6 % (10.5-14.5); WBC 7.3 thou/uL (4.0-11.0)
[2020-07-05 10:23] LABS: HEMOGLOBIN 15.4 gm/dL (14.0-18.0)
[2020-07-05 10:33] LABS: ALBUMIN 3.1 g/dL (3.4-5.0); CALCIUM 8.7 mg/dL (8.5-10.1); CREATININE 1.5 mg/dL (0.6-1.3); POTASSIUM 3.8 mmol/L (3.5-5.1); TOTAL BILIRUBIN 0.7 mg/dL (<0.1-1.0); TOTAL PROTEIN 6.6 g/dL (6.4-8.2)
--- NOTE | 2020-07-05 14:21 | 2DMMODE ---
[place] [address] 2 D/M-MODE ECHOCARDIOGRAM Name: SARAHDIEGODARSHAN Room: [facility] IN Abdirizak#: [id number] Admission: 07/04/20 Attend Phys: Adam Cano Discharge: Date of : 61 Date of Service: 07/05/20 1421 Report #: [id number] THIS REPORT FOR: cc: FAM - Family physician unknown FAM - Family physician unknown Cortes Hudson MD [facility] ~ APPROVED REPORT Study performed: 07/05/2020 10:29:55 EXAM: Limited 2D Echocardiogram Patient Location: In-Patient Room #: [facility] Status: routine BSA: 2.08 HR: 91 bpm BP: 110/73 mmHg Rhythm: NSR Other Information Study Quality: Good Indications Congestive Heart Failure 2D Dimensions IVSd: 13.24 (7-11mm) LVDd: 49.72 mm PWd: 10.86 (7-11mm) LVDs: 37.78 (25-40mm) Volumes Left Atrial Volume (Systole) LA ESV Index: 20.10 mL/m2 Left Ventricle The left ventricle is normal size. There is anteroapical hypokinesis. There is normal left ventricular wall thickness. Left ventricular systolic function is mild to moderately decreased. LVEF is 40-45%. Right Ventricle The right ventricle is normal size. The right ventricular [place] [address] 2 D/M-MODE ECHOCARDIOGRAM Name: SARAHDIEGODARSHANPETRA XIONG Room: [address] IN M.R.#: [id number] Admission: 07/04/20 Attend Phys: Adam Cano Discharge: Date of : 61 Date of Service: 07/05/20 1421 Report #: [id number] Atria The left atrium size is normal. The right atrium size is normal. Aortic Valve The aortic valve is normal in structure. Mitral Valve The mitral valve is normal in structure. Tricuspid Valve The tricuspid valve is normal in structure. Pulmonic Valve The pulmonary valve is normal in structure. Great Vessels The aortic root is normal in size. Pericardium There is no pericardial effusion. <Conclusion> The left ventricle is normal size. There is normal left ventricular wall thickness. Left ventricular systolic function is mild to moderately decreased. LVEF is 40-45%. The right ventricle is normal size. The left atrium size is normal. The aortic valve is normal in structure. The mitral valve is normal in structure. The tricuspid valve is normal in structure. There is no pericardial effusion. There is anteroapical hypokinesis. <ELECTRONICALLY SIGNED> By: Cortes Hudson MD, [facility] [id number] 20 20 Cortes Hudson MD, [facility] /INF
[2020-07-06] VITALS: BP 116/72
[2020-07-06 04:00] VITALS: BP 133/89
[2020-07-06 04:26] LABS: ABSOLUTE EOSINOPHILS 0.3 thou/uL (0.0-0.7); ABSOLUTE LYMPHOCYTES 2.5 thou/uL (0.8-5.3); ABSOLUTE MONOCYTES 0.7 thou/uL (0.0-1.2); ABSOLUTE NEUTROPHILS 3.5 thou/uL (1.6-8.1); BASOPHILS 0.6 %; EOSINOPHILS 3.7 %; HEMATOCRIT 46.7 % (42.0-52.0); HEMOGLOBIN 15.5 gm/dL (14.0-18.0); LYMPHOCYTES 35.3 %; MCH 31.9 pg (26.0-34.0); MCHC 33.3 g/dL (28.0-37.0); MCV 95.9 fL (80.0-100.0); MONOCYTES 9.9 %; MPV 6.9 fl. (7.2-11.1); NUCLEATED RBCS 0 /100WBC; PLATELET COUNT* 164 thou/uL (150-400); POLYS 50.5 %; RBC 4.87 mil/uL (4.50-6.00); RDW-CV 13.6 % (10.5-14.5)
[2020-07-06 04:37] LABS: CALCIUM 9.3 mg/dL (8.5-10.1); CREATININE 1.2 mg/dL (0.6-1.3); POTASSIUM 3.9 mmol/L (3.5-5.1)
[2020-07-06 08:00] VITALS: BP 150/96
[2020-07-06 09:39] VITALS: BP 150/96
--- NOTE | 2020-07-06 14:04 | EKG ---
[place] [address] ELECTROCARDIOGRAM REPORT Name: DARSHAN MURILLO Room: [address] IN M..#: [id number] Admission: 07/04/20 Attend Phys: Adam Cano Discharge: 07/06/20 Date of : 61 Date of Service: 07/04/20 1702 Report #: [id number] THIS REPORT FOR: //name// [facility] [place] [facility] ED Test Date: 2020-07-04 Test Time: 17:02:41 Pat Name: DARSHAN MURILLO Department: Room: [facility] Gender: M Flight Surveyor: JOSE A : 1965 Requested By: Julien Kelly Order Number: [id number] MD: Cortes Hudson Measurements Intervals [place] Rate: 118 P: 0 [place]: 107 QRS: 1 QRSD: 148 T: 154 QT: 350 QTc: 491 Interpretive Statements Sinus tachycardia Left bundle branch block Compared to ECG 06/09/2020 03:48:11 Left bundle-branch block now present Electronically Signed On 07-06-2020 14:04:13 WOOD FLOORING SPECIALIST by Cortes Hudson [email or web address] <ELECTRONICALLY SIGNED> By: Cortes uHdson MD, [facility] 07/06/20 1404 01 170 Cortes Hudson MD, [facility] /EPI
--- NOTE | 2020-07-06 15:23 | CON ---
[address] [address] CONSULTATION Name: DARSHAN MURILLO Room: [address] IN M.R.#: [id number] Admission: 07/04/20 Attend Phys: Judson Westbrook Discharge: 07/06/20 Date of : 61 Report #: [id number] THIS REPORT FOR: cc: FAM - Family physician unknown FAM - Family physician unknown ~ Cortes Hudson MD [facility] DATE OF SERVICE: 07/04/2020 CARDIOLOGY CONSULTATION HISTORY OF PRESENT ILLNESS: The patient is a very pleasant 54-year-old male with premature and aggressive coronary artery disease, who presented in mid May with acute anterior wall non-STEMI. He underwent sequential procedures to the LAD on 06/06 and 06/07 with a good angiographic result and ROSENDO 3 flow to the distal vessel. He had an echocardiogram during the hospitalization which revealed an EF of 40-45% with anterior wall hypokinesis. He had done well. He claims to be compliant with his medications including dual antiplatelet therapy. Today, he developed acute onset of shortness of breath after climbing a flight of stairs. He denied severe chest discomfort. On presentation to the ER, he remained dyspneic and required BiPAP. EKG revealed new left bundle-branch block in the context of his tachycardia. PHYSICAL EXAMINATION: GENERAL: Revealed a mildly distressed, tachypneic, overweight, middle-aged male. VITAL SIGNS: Blood pressure 120/70, pulse rate 118, respirations 28 per minute. NECK: Jugular venous pressure difficult to ascertain. CHEST: Revealed rare crackles. CARDIAC: Revealed rapid regular rhythm with a summation gallop. ABDOMEN: Mildly obese. EXTREMITIES: Without edema with intact femoral, pedal and radial pulses. EKG revealed sinus rhythm with intermittent left bundle-branch block, which appeared rate related. Remainder of the lab is pending. IMPRESSION: 1. Acute onset of shortness of breath. 2. Coronary artery disease, status post recent anterior infarction and sequential stenting [place] [address] CONSULTATION Name: DARSHAN MURILLO Room: [address] IN M.R.#: [id number] Admission: 07/04/20 Attend Phys: Judson Westbrook Discharge: 07/06/20 Date of : 61 Report #: [id number] 3. Hyperlipidemia. RECOMMENDATIONS: Given the acute onset and the associated development of new left bundle-branch block, I would recommend proceeding with emergent cardiac catheterization to define the presence or absence of patency of the LAD stent, which was recently deployed. The procedure and risks have been discussed with the patient. Critical care time is 35 minutes from 1750 to 1825 on 07/24/2020. <ELECTRONICALLY SIGNED> By: Cortes Hudson MD, [facility] 07/06/20 1523 182 Elsa Hudson MD, FACC /nt
--- NOTE | 2020-07-07 11:19 | CARD ---
[address] [address] CARDIAC CATH REPORT Name: SARAHDIEGODARSHANPETRA XIONG Room: [address] IN M.R.#: [id number] Admission: 07/04/20 Attend Phys: Judson Westbrook Discharge: 07/06/20 Date of : 61 Report #: [id number] THIS REPORT FOR: cc: FAM - Family physician unknown FAM - Family physician unknown ~ Cortes Hudson MD [facility] ADDENDUM APPROVED REPORT Study performed: 07/04/2020 17:36:31 Patient Details Patient Status: ED Room #: The patient is a 54 year-old male Event Personnel Corrina Dowell RN RN, Kathleen Medel, Lani Zhang RTR Scrub, Cortes Hudson Dentures Lab Technician Procedures Performed Art Access - R femoral artery* Left Heart Cath w/or w/o Coronaries [id number] [facility] Indication Abnormal ECG, CHF Current Status: Yes Risk Factors Hypercholesterolemia, Hypertension Previous Procedures/Diagnoses Previous PCI, Previous [place] Admission/Lab Medications/Medications given during procedure Lasix (Furosemide) IV 4 ml Procedure Narrative The patient was brought urgently to the Cardiac Catheterization Laboratory and was prepped and draped in a sterile manner. The right femoral was infiltrated with 2% Lidocaine subcutaneous anesthesia. A [place] 6 FR sheath was inserted into the right femoral artery. Coronary angiography was performed using coronary diagnostic catheters. The right coronary system was accessed and visualized with a Diagnostic catheter. The left coronary system was accessed and visualized with a Diagnostic catheter. The left ventricle was accessed and visualized with a Diagnostic catheter. Left [address] [address] CARDIAC CATH REPORT Name: DARSHAN MURILLO Room: [address]#: [id number] Admission: 07/04/20 Attend Phys: Judson Westbrook Discharge: 07/06/20 Date of : 61 Report #: [id number] ventricular/Aortic Valve gradient assessed via catheter pullback. Pre-demployment femoral angiogram was performed . Closure device was deployed with a 6 Fr mynx. The patient tolerated the procedure well and there were no complications associated with the procedure. There was no hematoma. Intraoperative Conscious Sedation Sedation start time: 17:51 Case end Time: 18:09 No sedation given. Fluoro Time: 2.4 minutes Dose: DAP 46631 cGycm2 456.62 mGy Contrast Type and Amount: Visipaque 60 ml Diagnostic Cath Left Main 0% narrowing LAD Widely patent proximalmid LAD stents with 0% narrowing Circumflex Prominent though nondominant vessel with 30% proximal mid and distal narrowings Right Coronary Moderate size dominant vessel with 40% proximal and mid vessel narrowing Left Ventriculography Left Ventriculography was not performed. Hemodynamics The aortic pressure is 114/74 mmHg with a mean of 68 mmHg. The left ventricular pressure is 114/1 mmHg with a mean of mmHg. The left ventricular end diastolic pressure is 19 mmHg. There was no gradient across the aortic valve upon pullback. Conclusion 1. Coronary artery disease characterized by the following: A widely patent proximalmid LAD stents B 30% proximal mid and distal circumflex narrowing C moderate size dominant right coronary artery with 40% proximal and mid vessel narrowing 2. Mild elevation of left ventricular end-diastolic pressure [place] [address] CARDIAC CATH REPORT Name: DARSHAN MURILLO Room: [address]#: [id number] Admission: 07/04/20 Attend Phys: Judson Westbrook Discharge: 07/06/20 Date of : 61 Report #: [id number] Cardiac Risk Reduction Program Aggressive Medical Therapy Diagnostic Cath Approved by: Cortes Hudson MD Date/Time: 07/05/2020 17:26:57 <ELECTRONICALLY SIGNED> By: Cortes Hudson MD, FACC 07/07/20 1119 1119 1119Cortes Hudson MD, FACC /INF
== END 2020-07-06 10:50 | disposition home or self-care (01) | DRG 281 ==
LOC: M.CL 17:00 → M.ERS 17:00 → M.TBA-CV 17:45 → M.CL 17:45 → UNDODEPER 18:53 → M.TBA-CV 18:54 → M.ICU 18:54 → M.2W 07-05 16:00
PROVIDERS: Emergency Medicine Emergency Medical Services; Internal Medicine; ADMIT Internal Medicine; ATTEND Internal Medicine
PROC: B211YZZ Fluoroscopy of Multiple Coronary Arteries using Other Contrast (ICD-10-PCS; principal; 2020-07-04)
PROC: 5A09357 Assistance with Respiratory Ventilation, Less than 24 Consecutive Hours, Continuous Positive Airway Pressure (ICD-10-PCS; principal; 2020-07-04)
PROC: B41FYZZ Fluoroscopy of Right Lower Extremity Arteries using Other Contrast (ICD-10-PCS; principal; 2020-07-04)
PROC: 4A023N7 Measurement of Cardiac Sampling and Pressure, Left Heart, Percutaneous Approach (ICD-10-PCS; principal; 2020-07-04)
PROC: 5A09357 Assistance with Respiratory Ventilation, Less than 24 Consecutive Hours, Continuous Positive Airway Pressure (ICD-10-PCS; 2020-07-05)
DX: I21.3 ST elevation (STEMI) myocardial infarction of unspecified site (principal); I42.9 Cardiomyopathy, unspecified; N17.9 Acute kidney failure, unspecified; I50.22 Chronic systolic (congestive) heart failure; I13.0 Hypertensive heart and chronic kidney disease with heart failure and stage 1 through stage 4 chronic kidney disease, or unspecified chronic kidney disease; I25.110 Atherosclerotic heart disease of native coronary artery with unstable angina pectoris; E78.00 Pure hypercholesterolemia, unspecified; E78.5 Hyperlipidemia, unspecified; F17.210 Nicotine dependence, cigarettes, uncomplicated; I44.7 Left bundle-branch block, unspecified; N18.9 Chronic kidney disease, unspecified; Z20.822 Contact with and (suspected) exposure to COVID-19; Z88.2 Allergy status to sulfonamides; Z79.899 Other long term (current) drug therapy